=== PATIENT | male | born 1960 | race Caucasian/White ===

== ENCOUNTER 2021-03-07 08:26 | Emergency (ER) | payer OTHER ==
[2021-03-07] MEDS ORDERED: TETRACAINE HCL 0.5% 4ML OPTH ONE (08:59)
[2021-03-07] MEDS ORDERED: FLUORESCEIN SODIUM 1 MG/WRAP ONE (08:59)
--- NOTE | 2021-03-07 08:59 | EDPHYS ---
Physician Documentation [facility] Name: Balta Dye Age: 60 yrs Sex: Male : 1960 Arrival Date: 03/07/2021 Time: 08:29 Bed 16 Private MD: ED Physician Joseph Mi HPI: 03/07 08:54 This 60 yrs old Male presents to ER via Ambulatory with complaints of Eye rn Pain. 08:54 The patient is experiencing pain, redness, tearing, The patient sustained Unknown. to rn the right eye, caused by an unknown mechanism. Onset: The symptoms/episode began/occurred this morning. Duration: the symptoms are continuous. Aggravated by blinking, rubbing, Alleviated by nothing. Patient does not utilize any form of vision correction. Severity of symptoms: At their worst the symptoms were mild in the emergency department the symptoms are unchanged. The patient has not experienced similar symptoms in the past. The patient has not recently seen a physician. Reports woke up with right eye pain and redness, + clear discharge, doesn't remember an injury. No fever. No vision correction. Feels like something in eye. No facial rash. . Historical: - Allergies: 08:35 No Known Allergies; sv - PMHx: 08:35 None; sv - PSHx: 08:35 Tonsillectomy; Hernia repair; sv - Immunization history:: Client reports receiving the 2nd dose of the Covid vaccine, Client reports receiving the 1st dose of the Covid vaccine. - Social history:: Smoking status: Patient reports the use of cigarette tobacco products, smokes one-half pack cigarettes per day. - Family history:: not pertinent. - Hospitalizations: : No recent hospitalization is reported. ROS: 08:54 Constitutional: Negative for fever, chills, and weight loss, Eyes: Negative for injury, rn + clear drainage Exam: 08:54 Visual Acuity: Visual acuity is within normal limits. rn 08:54 Constitutional: This is a well developed, well nourished patient who is awake, alert, and in no acute distress. Head/Face: Normocephalic, atraumatic. No rash. Eyes: Pupils equal round and reactive to light, extra-ocular motions intact. Lids and lashes normal. Periorbital areas with no swelling, redness, or edema. + clear drainage right eye. No visible foreign body, lids everted and fully examined. + inferior corneal flourescein uptake in horizontal pattern, no dendrites. Neg bridgett's. Vital Signs: 08:33 Temp 97.5; Weight 77.11 kg; Height 5 ft. 6 in. (167.64 cm); sv 08:43 BP 154 / 91; Pulse 72; Resp 18; Pulse Ox 99% on R/A; bw 08:33 Body Mass Index 27.44 (77.11 kg, 167.64 cm) sv MDM: 08:31 Patient medically screened. rn 08:54 Differential diagnosis: Corneal abrasion of Corneal ulcer of Foreign body in Data rn reviewed: vital signs, nurses notes, and as a result, I will discharge patient. Counseling: I had a detailed discussion with the patient and/or guardian regarding: the historical points, exam findings, and any diagnostic results supporting the discharge/admit diagnosis, the need for outpatient follow up, to return to the emergency department if symptoms worsen or persist or if there are any questions or concerns that arise at home. Response to treatment: the patient's symptoms have markedly improved after treatment, and as a result, I will discharge patient. Special discussion: I discussed with the patient/guardian in detail that at this point there is no indication for admission to the hospital. It is understood, however, that if the symptoms persist or worsen the patient needs to return immediately for re-evaluation. Administered Medications: 08:45 Drug: Fluorescein Strip 1 strip Route: Ophthalmic; Site: right eye; 08:45 Drug: Tetracaine Drops 0.5 % 1 drops Route: Ophthalmic; Site: right eye; Disposition: 03/07/21 08:58 Discharged to Home. Impression: Injury of conjunctiva and corneal abrasion without foreign body, right eye. - Condition is Stable. - Discharge Instructions: Corneal Abrasion. - Prescriptions for Vigamox 0.5 % Ophthalmic Drops - instill 1 drop by OPHTHALMIC route every 8 hours for 7 days; 5 milliliter. - Medication Reconciliation Form, Thank You Letter, Antibiotic Education, Prescription Opioid Use form. - Follow up: Private Physician; When: As needed; Reason: Recheck today's complaints, Re-evaluation by your physician. - Problem is new. - Symptoms have improved. Signatures: Diana Collado RN RN Joseph Mi MD MD rn BowerElvia RN RN bw Corrections: (The following items were deleted from the chart) 09:08 08:58 03/07/2021 08:58 Discharged to Home. Impression: Injury of conjunctiva and bw corneal abrasion without foreign body, right eye. Condition is Stable. Forms are Medication Reconciliation Form, Thank You Letter, Antibiotic Education, Prescription Opioid Use. Follow up: Private Physician; When: As needed; Reason: Recheck today's complaints, Re-evaluation by your physician. Problem is new. Symptoms have improved. rn
--- NOTE | 2021-03-07 08:59 | ER ---
Nurse's Notes [facility] Name: Balta Dye Age: 60 yrs Sex: Male : 1960 Arrival Date: 03/07/2021 Time: 08:29 Bed 16 Private MD: Diagnosis: Injury of conjunctiva and corneal abrasion without foreign body, right eye Presentation: 03/07 08:33 Chief complaint: Patient states: "I think I got something in my right eye last night sv while I was sleeping.". Coronavirus screen: Client denies travel out of the [place] in the last 14 days. At this time, the client does not indicate any symptoms associated with coronavirus-19. Ebola Screen: No symptoms or risks identified at this time. Mechanism of Injury: No Mechanism of Injury. Risk Assessment: Do you want to hurt yourself or someone else? Patient reports no desire to harm self or others. Onset of symptoms was March 07, 2021. 08:33 Method Of Arrival: Ambulatory sv 08:33 Acuity: ROSSY 3 sv 09:08 The patient denies any loss of vision. Initial Sepsis Screen: Does the patient meet any bw 2 criteria? No. Patient's initial sepsis screen is negative. Does the patient have a suspected source of infection? No. Patient's initial sepsis screen is negative. Triage Assessment: 09:07 General: Appears in no apparent distress. uncomfortable, Behavior is calm, cooperative, bw appropriate for age. Historical: - Allergies: 08:35 No Known Allergies; sv - PMHx: 08:35 None; sv - PSHx: 08:35 Tonsillectomy; Hernia repair; sv - Immunization history:: Client reports receiving the 2nd dose of the Covid vaccine, Client reports receiving the 1st dose of the Covid vaccine. - Social history:: Smoking status: Patient reports the use of cigarette tobacco products, smokes one-half pack cigarettes per day. - Family history:: not pertinent. - Hospitalizations: : No recent hospitalization is reported. Screenin:43 Abuse screen: Denies threats or abuse. Nutritional screening: No deficits noted. bw Tuberculosis screening: No symptoms or risk factors identified. Fall Risk None identified. Assessment: 08:42 Pain: Complains of pain in right eye. Neuro: No deficits noted. Cardiovascular: No bw deficits noted. Respiratory: No deficits noted. GI: No deficits noted. : No deficits noted. EENT: Eyes are tearing on outer aspect of conjuctiva of right eye and inner aspect of conjuctiva of right eye Sclera/Cornea are reddened in outer aspect of conjuctiva of right eye and inner aspect of conjuctiva of right eye. Vital Signs: 08:33 Temp 97.5; Weight 77.11 kg; Height 5 ft. 6 in. (167.64 cm); sv 08:43 BP 154 / 91; Pulse 72; Resp 18; Pulse Ox 99% on R/A; bw 08:33 Body Mass Index 27.44 (77.11 kg, 167.64 cm) sv ED Course: 08:29 Patient arrived in ED. mr 08:31 Joseph Mi MD is Attending Physician. rn 08:34 Triage completed. sv 08:35 Arm band placed on Patient placed in an exam room, on a stretcher. sv 08:38 Elvia Bower RN is Primary Nurse. bw 08:43 Patient has correct armband on for positive identification. Bed in low position. Call bw light in reach. Side rails up X2. Pulse ox on. NIBP on. Warm blanket given. 08:43 Patient did not have IV access during this emergency room visit. bw 08:43 Assist provider with eye exam. bw Administered Medications: 08:45 Drug: Fluorescein Strip 1 strip Route: Ophthalmic; Site: right eye; bw 08:45 Drug: Tetracaine Drops 0.5 % 1 drops Route: Ophthalmic; Site: right eye; Outcome: 08:58 Discharge ordered by . rn 09:07 Discharged to home ambulatory. bw 09:07 Condition: stable 09:07 Discharge instructions given to patient, Instructed on follow up and referral plans. medication usage, Prescriptions given X 1. 09:08 Patient left the ED. Signatures: Diana Collado RN RN sv RojelioKusum mr Joseph Mi MD MD rn Webb, Bethany, RN RN Corrections: (The following items were deleted from the chart) 08:44 08:44 Tetracaine Drops 0.5 % 1 drops Ophthalmic in right eye bw
[2021-03-07 09:16] VITALS: TEMP 97.5
[2021-03-07 09:17] VITALS: BP 154/91; O2SAT 99
== END 2021-03-07 09:08 | disposition home or self-care (01) ==
LOC: ER 08:26
DX: S05.01XA Injury of conjunctiva and corneal abrasion without foreign body, right eye, initial encounter (principal); F17.210 Nicotine dependence, cigarettes, uncomplicated
CPT/HCPCS: 99284

== ENCOUNTER 2021-03-30 15:10 | Emergency (ER) | payer OTHER ==
--- NOTE | 2021-03-30 16:47 | RAD REPORT ---
EXAM DESCRIPTION: CT - Head Brain Wo Cont - 03/30/2021 4:37 pm CLINICAL HISTORY: Dizziness COMPARISON: 2013 TECHNIQUE: Computed axial tomography of the head was obtained. IV contrast was not requested. All CT scans are performed using dose optimization technique as appropriate and may include automated exposure control or mA/KV adjustment according to patient size. FINDINGS: An intracranial bleed is not seen . The ventricles are normal in caliber. No extra-axial fluid collection is noted. Fluid within the sinuses/ mastoids is not seen. IMPRESSION: No acute intracranial abnormality is seen. If patient's symptoms persist MRI of the bra in would be recommended.
[2021-03-30] MEDS ORDERED: MORPHINE 4 MG/ML SYR ONE (20:51)
[2021-03-30] MEDS ORDERED: NA CHLORIDE 0.9% 1,000 ML ONE (20:51)
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
--- NOTE | 2021-03-30 22:49 | EDPHYS ---
Physician Documentation [facility] Name: Balta Dye Age: 60 yrs Sex: Male : 1960 Arrival Date: 03/30/2021 Time: 15:12 Bed 4 Private MD: ED Physician Joseph Mi HPI: 03/30 20:30 This 60 yrs old Male presents to ER via Ambulatory with complaints of rn Headache. 20:30 The patient complains of pain to the left temporal area. The patient describes the rn headache as aching, throbbing. Onset: The symptoms/episode began/occurred 7 month(s) ago. Associated signs and symptoms: Pertinent negatives: altered mental status, fever, neck stiffness, vision loss. Severity of symptoms: At its worst the pain was moderate, in the emergency department the pain is unchanged. The symptoms are alleviated by nothing. the symptoms are aggravated by nothing. The patient has experienced similar episodes in the past. The patient has not recently seen a physician. Reports left sided headache above his left ear, began last year, had ct head with and without contrast showed mild carotid and possibly vertebral calcification. Reports has been doing ok until recently began with headache again. No fever. No head injury. No vision changes. Reports pain medication not taking it away. No focal neuro complaints. . Historical: - Allergies: 15:45 No Known Allergies; tw2 - Home Meds: 15:45 potassium chloride 10 mEq Oral cpER 1 cap once daily [Active]; metformin 500 mg Oral tw2 tab 1 tab 2 times per day [Active]; furosemide 20 mg Oral tab 1 tab once daily [Active]; Vitamin B-12 1,000 mcg/mL Oral drop [Active]; carvedilol oral oral [Active]; aspirin 81 mg Oral chew 1 tab once daily [Active]; omeprazole Oral [Active]; Allopurinol Oral [Active]; Digoxin Oral [Active]; Lisinopril Oral [Active]; Fish Oil oral oral [Active]; Temazepam Oral [Active]; lamotrigine oral oral [Active]; olanzapine oral oral [Active]; Benztropine Mesylate Oral [Active]; atorvastatin oral oral [Active]; - PMHx: 15:45 Bipolar disorder; Hypertension; tw2 - PSHx: 15:45 Tonsillectomy; Hernia repair; tw2 - Immunization history:: Adult Immunizations. - Social history:: Smoking status: . - Family history:: not pertinent. - Hospitalizations: : No recent hospitalization is reported. ROS: 20:30 Constitutional: Negative for fever, chills, and weight loss, Eyes: Negative for injury, rn pain, redness, and discharge, Neck: Negative for injury, pain, and swelling, Cardiovascular: Negative for chest pain, palpitations, and edema, Respiratory: Negative for shortness of breath, cough, wheezing, and pleuritic chest pain, Abdomen/GI: Negative for abdominal pain, nausea, vomiting, diarrhea, and constipation, Back: Negative for injury and pain, MS/Extremity: Negative for injury and deformity, Skin: Negative for injury, rash, and discoloration, Neuro: Negative for weakness, numbness, tingling, and seizure. Exam: 20:30 Constitutional: This is a well developed, well nourished patient who is awake, alert, rn and in no acute distress. Head/Face: Normocephalic, atraumatic. Eyes: Pupils equal round and reactive to light, extra-ocular motions intact. Neck: Trachea midline, no masses palpated, and no cervical lymphadenopathy. Supple, full range of motion without nuchal rigidity, or vertebral point tenderness. No Meningismus. Cardiovascular: Regular rate and rhythm. No pulse deficits. Respiratory: No increased work of breathing, no retractions or nasal flaring. Abdomen/GI: soft, non-tender Skin: Warm, dry MS/ Extremity: Pulses equal, no cyanosis. Neurovascular intact. Full, normal range of motion. Equal circumference. Neuro: Awake and alert, GCS 15, oriented to person, place, time, and situation. Cranial nerves II-XII grossly intact. Motor strength 5/5 in all extremities. Sensory grossly intact. Vital Signs: 15:37 BP 131 / 80; Pulse 83; Resp 16; Temp 97.9(TE); Pulse Ox 96% on R/A; Weight 74.84 kg tw2 (R); Height 5 ft. 6 in. (167.64 cm); Pain 8/10; 17:56 Pulse 97; Resp 17; Pulse Ox 98% ; tw2 20:48 BP 148 / 94; Pulse 73; Resp 17; Pulse Ox 97% ; ad5 21:43 BP 137 / 88; Pulse 73; Resp 18; Pulse Ox 95% on R/A; mg2 22:08 BP 132 / 86; Pulse 75; Resp 16; Pulse Ox 96% on R/A; ad5 22:41 BP 136 / 82; Pulse 73; Resp 18; Pulse Ox 95% on R/A; mg2 15:37 Body Mass Index 26.63 (74.84 kg, 167.64 cm) tw2 17:56 nad, talking with other ER pts in waiting area tw2 Kayli Coma Score: 22:46 Eye Response: spontaneous(4). Verbal Response: oriented(5). Motor Response: obeys rn commands(6). Total: 15. MDM: 20:14 Patient medically screened. rn 22:46 Differential diagnosis: hypertensive headache, migraine, neoplasm, tension headache, rn vasomotor headache, aneurysm. Data reviewed: vital signs, nurses notes, radiologic studies, CT scan, and as a result, I will discharge patient. Counseling: I had a detailed discussion with the patient and/or guardian regarding: the historical points, exam findings, and any diagnostic results supporting the discharge/admit diagnosis, radiology results, the need for outpatient follow up, to return to the emergency department if symptoms worsen or persist or if there are any questions or concerns that arise at home. Response to treatment: the patient's symptoms have markedly improved after treatment, and as a result, I will discharge patient. Special discussion: I discussed with the patient/guardian in detail that at this point there is no indication for admission to the hospital. It is understood, however, that if the symptoms persist or worsen the patient needs to return immediately for re-evaluation. Based on the history and exam findings, there is no indication for further emergent testing or inpatient evaluation. I discussed with the patient/guardian the need to see the neurologist for further evaluation of the symptoms. 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 Return precautions given and understood.. 03/30 15:46 Order name: CT Head Brain wo Cont; Complete Time: 20:15 tw2 03/30 20:25 Order name: CT Head Angio rn 03/30 20:25 Order name: CT Neck Angio rn 05/04 20:25 Order name: IV Start; Complete Time: 20:45 rn Administered Medications: 20:44 Drug: morphine 4 mg Route: IVP; Site: left antecubital; mg2 22:40 Follow up: Response: No adverse reaction mg2 20:44 Drug: NS 0.9% 1000 ml Route: IV; Rate: 1000 ml; Site: left antecubital; mg2 22:40 Follow up: Response: No adverse reaction; IV Status: Completed infusion; IV Intake: mg2 1000ml Disposition: 03/30/21 22:48 Discharged to Home. Impression: Headache, Aneurysm of carotid artery - Cavernous. - Condition is Stable. - Discharge Instructions: General Headache Without Cause, Cerebral Aneurysm. - Medication Reconciliation Form, Thank You Letter, Antibiotic Education, Prescription Opioid Use form. - Follow up: Private Physician; When: 1 - 2 days; Reason: Recheck today's complaints, Re-evaluation by your physician. - Problem is new. - Symptoms have improved. Signatures: Dispatcher [employer] EDMS Joseph Mi MD MD rn Wise, ADAMS Delgado RN tw2 Brennan Muir RN RN mg2 Corrections: (The following items were deleted from the chart) 23:06 22:48 03/30/2021 22:48 Discharged to Home. Impression: Headache; Aneurysm of carotid mg2 artery - Cavernous. Condition is Stable. Forms are Medication Reconciliation Form, Thank You Letter, Antibiotic Education, Prescription Opioid Use. Follow up: Private Physician; When: 1 - 2 days; Reason: Recheck today's complaints, Re-evaluation by your physician. Problem is new. Symptoms have improved. rn
[2021-03-30 23:23] VITALS: TEMP 97.9
[2021-03-30 23:36] VITALS: BP 136/82; O2SAT 95
--- NOTE | 2021-03-31 11:09 | RAD REPORT ---
EXAM DESCRIPTION: Karoline Angio03/31/2021 6:57 am CLINICAL HISTORY: 60-year-old male with dizziness and headache. Technologist note: Pain to spot abov e left ear. COMPARISON: None. TECHNIQUE: CT angiography of the head and neck following dynamic bolus of intravenous contrast. MIP reformatted reconstructions created. This exam was performed according to our departmental dose optim ization program which includes use of automated exposure control, adjustment of the mA and/or kV acco rding to patient size and/or use of iterative reconstruction technique. FINDINGS: CTA neck: Patent flow opacification of the aortic arch origin right brachiocephalic, left common carotid, and l eft subclavian arteries. The bilateral vertebral artery origins are normal. Patent flow opacification through the bilateral common carotid arteries, carotid bifurcations, cervic al internal/external carotid, and vertebral arteries. CTA brain: Patent flow opacification through anterior circulation (bilateral petrous/cavernous/supraclinoid inte rnal carotid arteries, anterior and middle cerebral arteries), posterior circulation (vertebral-basil ar, posterior-inferior cerebellar, superior cerebellar, and posterior cerebral arteries), and distal intracranial vasculature. The anterior inferior cerebellar arteries are poorly visualized, a finding which may be secondary to small size. Patent flow opacification through an incomplete [id number] with a patent anterior communicating artery and bilateral absent posterior communicating arteries. Normal superficial and deep intracranial venous drainage. Small outpouching is identified in a is occluded distribution, directed toward from the distal cavern ous carotid artery measuring 3 mm compatible with a small aneurysm, (series 407, image 131). Additional findings include multilevel moderate to severe degenerative change of the cervical spine. IMPRESSION: 1. Patent flow related enhancement of the intracranial circulation. 2. Patent flow related enhancement of the cervical vasculature without significant stenosis by NASC ET criteria. 3. 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 Electronically signed by: Jaye Araya MD 03/30/2021 9:42 PM CDT Due to temporary technical issues with the PACS/Fluency reporting system, reports are being signed by the in house radiologist without review as a courtesy to ensure prompt reporting. The interpreting r adiologist is fully responsible for the content of the report.
--- NOTE | 2021-03-31 11:37 | RAD REPORT ---
EXAM DESCRIPTION: CTHead angio03/31/2021 6:57 am CLINICAL HISTORY: 60-year-old male with dizziness and headache. Technologist note: Pain to spot abov e left ear. COMPARISON: None. TECHNIQUE: CT angiography of the head and neck following dynamic bolus of intravenous contrast. MIP reformatted reconstructions created. This exam was performed according to our departmental dose optim ization program which includes use of automated exposure control, adjustment of the mA and/or kV acco rding to patient size and/or use of iterative reconstruction technique. FINDINGS: CTA neck: Patent flow opacification of the aortic arch origin right brachiocephalic, left common carotid, and l eft subclavian arteries. The bilateral vertebral artery origins are normal. Patent flow opacification through the bilateral common carotid arteries, carotid bifurcations, cervic al internal/external carotid, and vertebral arteries. CTA brain: Patent flow opacification through anterior circulation (bilateral petrous/cavernous/supraclinoid inte rnal carotid arteries, anterior and middle cerebral arteries), posterior circulation (vertebral-basil ar, posterior-inferior cerebellar, superior cerebellar, and posterior cerebral arteries), and distal intracranial vasculature. The anterior inferior cerebellar arteries are poorly visualized, a finding which may be secondary to small size. Patent flow opacification through an incomplete [id number] with a patent anterior communicating artery and bilateral absent posterior communicating arteries. Normal superficial and deep intracranial venous drainage. Small outpouching is identified in a is occluded distribution, directed toward from the distal cavern ous carotid artery measuring 3 mm compatible with a small aneurysm, (series 407, image 131). Additional findings include multilevel moderate to severe degenerative change of the cervical spine. IMPRESSION: 1. Patent flow related enhancement of the intracranial circulation. 2. Patent flow related enhancement of the cervical vasculature without significant stenosis by NASC ET criteria. 3. 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 Electronically signed by: Jaye Araya MD 03/30/2021 9:42 PM CDT Due to temporary technical issues with the PACS/Fluency reporting system, reports are being signed by the in house radiologist without review as a courtesy to ensure prompt reporting. The interpreting r adiologist is fully responsible for the content of the report.
== END 2021-03-30 23:06 | disposition home or self-care (01) ==
LOC: ER 15:10
DX: I72.0 Aneurysm of carotid artery (principal); I10 Essential (primary) hypertension; F31.9 Bipolar disorder, unspecified
CPT/HCPCS: 70450; 70496; 70498; Q9967; J7030; 96361; 96374; 99284